=== PATIENT | female | born 1985 | race Caucasian/White ===

== ENCOUNTER 2025-01-11 03:29 | Emergency (ER) | payer MEDICAID, SELFPAY ==
[2025-01-11 03:29] VITALS: BMI 34.4
[2025-01-11 03:34] VITALS: BP 171/109; PULSE 84; RESP 16; TEMP 37.1; O2SAT 98
--- NOTE | 2025-01-11 04:10 | EDNOTE_ITS ---
<Statement entered by Eliana Hensley MD - 01/11/25 05:10> As co-signing physician, I was present and available for consult prn. I concur with the plan and care as documented by the midlevel provider. ED Ear RME/HPI General Chief complaint: Ear Stated complaint: BILATERAL EAR PAIN Time Seen by Provider: 01/11/25 03:46 Arrival date/time: 01/11/25 03:29 RME / HPI RME / HPI Narrative: 39 year old female presents to the ED with a complaint of left ear pain and swelling. She works at [employer] and is required to wear ear plugs. She states they get a new pair every shift. She denies any fever, chills, runny nose or nasal congestion, sore throat or cough. She denies any nausea, vomiting or abdominal pain. Related Data Previous Rx's ?Medication ?Instructions ?Recorded ibuprofen 600 mg tablet 600 mg PO Q8H PRN fever or p ain 01/11/25 #30 tabs isopropyl alcohol 95 % in glycerin 4 drp otic (ear) QD AY PRN After 01/11/25 5 % ear drops (Swimmer's Instant removal of earplugs # 30 mL Ear Dry) [id number] 3.3 4 drp otic (ear) TID # 10 mL 01/11/25 mg-3 mg-10 mg-0.5 mg/mL ear drops,susp (Cortisporin-TC) Allergies Allergy/AdvReac Type Severity Reaction Status Date / Time No Known Allergies Allergy Verified 01/19/20 04:47 Review of Systems Review of Systems Systems Reviewed: All systems reviewed, normal except as documented Past Medical History Past Medical History NEUROLOGIC: Negative Neurological Disorders or Seizures CARDIAC: Positive Cardiac Disorders and Hypertension; Negative Congestive Heart Failure RESPIRATORY: Negative Chronic Obstructive Pulmonary Disease (COPD) GASTROINTESTINAL: Positive Gastrointestinal Disorders, Gall Bladder Disease and Obesity; Negative Hepatitis or Gastroesophageal Reflux Disease GENITOURINARY: Negative Genitourinary Disorders or Renal Disease REPRODUCTIVE: Positive Previous Pregnancies; Negative Endometriosis MUSCULOSKELETAL: Negative Musculoskeletal Disorders or Carpal Tunnel Syndrome ENDOCRINE: Negative Endocrine Disorders, Diabetes Mellitus Type 1 or Diabetes Mellitus Type 2 HEMATOLOGIC: Positive Anemia; Negative Clotting Problems OTHER HISTORY: Positive Hospitalization and Chicken Pox; Negative Autoimmune Disease, Falls, Blood Transfusions, Blood Transfusion Reaction, Anesthesia Reactions, Organ Transplant, MRSA or Cancer Family History FAMILY HISTORY: Negative Family Psychiatric Problems, Family Respiratory Disorders, Family Cardiac Disorders, Family Gastrointestinal Problems, Family Cancer, Family Surgery or Family Anesthesia Reaction Surgical History SURGICAL: Positive Abdominal Surgery; Negative Cardiac Surgery, Endocrine Surgery, Ear Surgery, Eye Surgery, Nose Surgery, Oral Surgery, Joint Replacement, Amputation, Open Reduction Internal Fixation, Arthroscopy, Neurologic Surgery, Tubal Ligation or Organ Transplant Social History SMOKING STATUS: Current every day smoker ED Exam Narrative Physical exam: A&O, afebrile and non-toxic appearing 39 year old female, no acute distress. TM's are without erythema. Right canal without erythema, swelling, maceration, or discharge. Left canal with erythema and swelling. No maceration or discharge at this time. Neck is supple. +Preauricular adenopathy. Mild pain with tragus and pinna movement. Pharynx without erythema. Course Course Course Narrative: Ear wick placement in left ear canal. Patient tolerated procedure well. Cortisporin Otic Solution placed in left ear canal x4 drops. Patient given Toradol 30mg IM. Quality Measures none Orders Category Date Time Status Ketorolac Inj [Toradol Inj] Med 01/11/25 04:09 Discontinued 30 mg IM X1 ONE Hugh/Poly/Hc Otic Jumana [Cortisporin Otic Jumana] Med 01/11/25 04:02 Discontinued 4 drop LEFT EAR X1 ONE Vital Signs Vital signs: Vital Signs Temperature 98.8 F 01/11/25 03:34 Pulse Rate 84 01/11/25 03:34 Respiratory Rate 16 01/11/25 03:34 Blood Pressure 171/109 H 01/11/25 03:34 Pulse Oximetry (%) 98 01/11/25 03:34 Oxygen Delivery Method Room Air 01/11/25 03:34 Ear Patient data External records reviewed:: None Clinical information provided by:: patient Social determinants that could affect healthcare access:: none Patient has the following chronic illnesses:: Previous history of otitis externa from earplugs. How is presenting disease/condition affected by chronic disease/condition?: exacerbated by Evaluation data The following diagnostics were reviewed and interpreted by me:: other (specify) (N/A) Lab and/or radiology exams considered but not ordered:: N/A Interpretation Summary: N/A Medications / Prescriptions Medications or Prescriptions considered but not ordered:: N/A Medication administrations:: Medication Administration History Discontinued Medications Ketorolac Tromethamine (Ketorolac Inj 60 Mg/2 Ml Vial) 30 mg IM X1 ONE Stop: 01/11/25 04:10 Neomycin/Polymyxin/Hydrocortisone (Hugh/Poly/Hc (Cortisporin) Otic Jumana 10 Ml Btl) 4 drop LEFT EAR X1 ONE Stop: 01/11/25 04:03 As noted above Consultations Consultation(s) initiated? (list below): No Diagnosis Most likely diagnosis given after review of the tests above:: Left otitis externa Admission Indicated Admission indicated?: not indicated Admission Request Was there a request for admission?: No Disposition Plan Disposition Plan: Discharge Discharge Attestation Discharge Attestation: The patient and all family members were given an opportunity to ask questions and understood the discharge instructions. Discharge instructions specifically effects, indications for sooner follow up or return to the emergency department, and the expected course of current diagnosis. Patient condition: Stable Discharge Plan Plan Patient Disposition: HOME (Self Care) Discharge Disposition comment: sTABLE Prescriptions/Referrals Prescriptions/Med Rec: New Cortisporin-TC 3.3-3-10-0.5 mg/mL drops,suspension 4 drp otic (ear) TID Qty: 10 0RF ibuprofen 600 mg tablet 600 mg PO Q8H PRN (Reason: fever or pain) Qty: 30 0RF Swimmer's Instant Ear Dry 95-5 % drops 4 drp otic (ear) QDAY PRN (Reason: After removal of earplugs) Qty: 30 0RF Rx Instructions: Use only in noninfected ears after removal of earplugs daily. Problem List Clinical Impression: Otitis externa Patient/Caregiver Discharge Instructions Education Materials: ED External Ear Infection (Adult) Additional Instructions: Use the antibiotic drops as prescribed. When the swelling decreases, the wick will fall out. Follow-up with your primary care physician in 24 to 48 hours. Return to the ED for any new or worsening symptoms. Print Language: Gambian Stand Alone Forms: Stefania Award Info., Patient Portal Info Letter PA/[employer] CR[employer] SUPERVISOR Supervising Physician PA/[employer]CHO[employer] CR[employer] SUPERVISOR Supervising Physician: Dr. Hensley
[2025-01-11] MEDS: KETOROLAC INJ 60 MG/2 ML VIAL 30 MG IM (04:58)
[2025-01-11] MEDS: NEO/POLY/HC (Cortisporin) OTIC SOL 10 ML BTL 4 DROP LEFT EAR (04:58)
== END 2025-01-11 05:48 | disposition home or self-care (01) ==
LOC: SERX 05:51
PROVIDERS: Emergency Provider Emergency Medicine; PCP Physician Assistant
DX: H60.92 Unspecified otitis externa, left ear (principal)
CPT/HCPCS: 96372; 99283; J1885; A9270